=== PATIENT | female | born 1960 | race Caucasian/White ===

== ENCOUNTER 2019-06-11 03:00 | Inpatient (IN) | payer BC, OTHER ==
[2019-06-11 03:41] LABS: #Basophils 0.1 thou/uL (0.0-0.2); #Eosinphils 0.2 thou/uL (0.0-0.7); #Lymphocytes 2.1 thou/uL (1.20-3.40); #Monocytes 0.6 thou/uL (0.11-0.59); #Neutrophils 7.3 thou/uL (1.40-6.50); %Basophils 0.6 % (0.0-1.0); %Eosinophils 2.3 % (0.0-10.0); %Lymphocytes 20.7 % (21.0-51.0); %Monocytes 5.4 % (0.0-10.0); Hemoglobin 9.6 g/dL (12.0-16.0); Mean Corpuscular HGB CONC 32.1 g/dL (32.0-36.0); Mean Corpuscular Hemoglobin 29.1 pg (27.0-31.0); Mean Corpuscular Volume 90.7 fL (78.0-98.0); Mean Platelet Volume 6.5 fL (7.4-10.4); Platelet Count 470 thou/uL (130-400); RBC Distribution Width 15.1 % (11.5-14.5); Red Blood Cell (RBC) Count 3.29 mill/uL (4.20-5.40); White Blood Cell (WBC) Count 10.3 thou/uL (4.8-10.8)
[2019-06-11] MEDS ORDERED: Ondansetron PF 4 MG/2 ML Vial ONE (03:46)
[2019-06-11] MEDS ORDERED: Pantoprazole 80 MG in Sodium Chloride 0.9% 100 ML IVP SCH (04:00)
[2019-06-11] MEDS ORDERED: Acetaminophen 325 MG TAB PO PRN ×2 (04:56→07:49)
[2019-06-11] MEDS ORDERED: HYDROcodone/Acetaminophen 5/325 mg Tablet PO PRN ×2 (04:56)
[2019-06-11] MEDS ORDERED: Sodium Chloride 0.9% 1,000 ML IV SCH (04:56)
[2019-06-11] MEDS ORDERED: Ondansetron PF 4 MG/2 ML Vial IVP PRN ×2 (04:56→07:49)
[2019-06-11] MEDS ORDERED: Ondansetron ODT 4 MG TAB SL PRN ×2 (04:56→07:49)
[2019-06-11 05:26] VITALS: BMI 24.5
[2019-06-11] MEDS ORDERED: Loperamide HCl 2 MG CAP PO PRN (07:49)
[2019-06-11] MEDS ORDERED: hydrALAZINE 20 MG/ML VIAL SLOW IVP PRN (07:49)
[2019-06-11] MEDS ORDERED: Cepastat Lozenges 1 LOZ PO PRN (07:49)
[2019-06-11] MEDS ORDERED: Loratadine 10 MG TAB PO PRN (07:49)
[2019-06-11] MEDS ORDERED: Diabetic Tussin 200 MG/10 ML UDCUP PO PRN (07:49)
[2019-06-11] MEDS ORDERED: Calcium Carbonate 500 MG ChewTAB PO PRN (07:49)
[2019-06-11] MEDS ORDERED: Artificial Tears 18 DROP/0.9 ML EA EYE PRN (07:49)
[2019-06-11] MEDS ORDERED: Sodium Chloride 0.65% Nasal 44 ML BOT EA NARE PRN (07:49)
[2019-06-11] MEDS ORDERED: Senokot S 8.6-50 MG TAB PO PRN (07:49)
[2019-06-11] MEDS ORDERED: Zolpidem Tartrate 5 MG TAB PO PRN (07:49)
[2019-06-11] MEDS ORDERED: Bisacodyl 10 MG SUPP PR PRN (07:49)
--- NOTE | 2019-06-11 11:10 | HP ---
PRIMARY CARE PHYSICIAN: [facility] Call Admission. REASON FOR ADMISSION: Epigastric abdominal pain, GI bleed, and symptomatic anemia. HISTORY OF PRESENT ILLNESS: A 59-year-old female, who has previous history of peptic ulcer disease, which was diagnosed several years ago. She was having epigastric abdominal pain for last six months. She required two emergency room visit in [place] where she lives, but she has not had any specific tests done. The patient was not taking any specific medication, but she was trying [id number] occasional Tylenol or ibuprofen for pain. For last 2 to 3 days when she was visiting her daughter here, she was having constant epigastric pain and she was feeling nausea and vomiting. Yesterday, she had several episodes of vomiting and she also reports that she lost almost 20 pounds over last several months. She denies any relation of epigastric pain with food, but the patient has constant nagging pain in the epigastric region. She denies noticing any melena or hematochezia. She came to emergency room. She was evaluated at [facility], where she had CT of the abdomen and pelvis, which showed abnormality of the gastric mucosa in the region of gastric antrum and left ovarian dermoid cyst was found incidentally. The patient was given Protonix and subsequently, she was transferred to our emergency room for admission. REVIEW OF SYSTEMS: CONSTITUTIONAL: Negative for weight loss or gain, ability to conduct usual activities. SKIN: Negative for rash, itching. EYES: Negative for double vision, pain. ENT/MOUTH: Negative for nose bleeding, neck stiffness, pain, tenderness. CARDIOVASCULAR: Negative for palpitations, dyspnea on exertion, orthopnea. RESPIRATORY: Negative for shortness of breath, wheezing, cough, hemoptysis, fever or night sweats. GASTROINTESTINAL: Negative for poor appetite, abdominal pain, heartburn, nausea, vomiting, constipation, or diarrhea. GENITOURINARY: Negative for urgency, frequency, dysuria, nocturia. MUSCULOSKELETAL: Negative for pain, swelling. NEUROLOGIC/PSYCHIATRIC: Negative for anxiety, depression. ALLERGY/IMMUNOLOGIC: Negative for skin rash, bleeding tendency. Please see my HPI for pertinent positive and negative. All other systems reviewed and negative except as mentioned in HPI. PAST MEDICAL HISTORY: History of peptic ulcer disease, required treatment in the past. She had anemia, required blood transfusion in the past. PAST SURGICAL HISTORY: Bleeding ulcer repair. PAST PSYCHIATRIC HISTORY: Reviewed and negative. SOCIAL HISTORY: The patient drinks alcohol occasionally. She denies any smoking. She denies any other illicit drug abuse. FAMILY HISTORY: No family history of coronary artery disease, stroke, or cancer. ALLERGIES: PENICILLIN. CURRENT HOME MEDICATION: Reglan 10 mg p.r.n. EMERGENCY ROOM COURSE: The patient is given Protonix and Protonix drip started. Zofran was given. PHYSICAL EXAMINATION: VITAL SIGNS: On arrival, blood pressure 117/63, pulse 111, respiratory rate 13, temperature 98.9, and saturation 96% on room air. Weight 59 kg. GENERAL: The patient is currently alert, awake, and in no obvious acute distress. HEENT: Head; normocephalic and atraumatic. Eyes; pupils are round and reactive to light. Extraocular muscle intact. ENT; oropharynx within normal limits. Moist mucous membranes. No oral lesion. No pharyngeal erythema. No exudate. NECK: Supple. No JVD. No thyromegaly. No carotid bruit. No jugular venous distention. LUNGS: Clear to auscultation without any rhonchi or rales. CARDIAC: S1 and S2, regular. No murmur. No gallop. No rub. ABDOMEN: Soft. Bowel sounds present. Epigastric tenderness noted. No peritoneal sign. No guarding. No rigidity. No rebound. BACK: Examination unremarkable. No CVA tenderness. EXTREMITIES: Upper extremities, passive movement of all joints are normal. Lower extremities, no edema. Good distal pulsation. SKIN: No skin rash. HEMATOLOGIC: No lymphadenopathy. NEUROLOGIC: Nonfocal examination. SIGNIFICANT LABORATORY DATA: CBC; WBC 10.3, hemoglobin on admission 6.8 and currently 9.6, and platelets are 470. BMP; sodium 141, potassium 3.7, chloride 106, BUN 27, creatinine 0.73, glucose 105, calcium 9.4, lactic acid 1.0. LFT; AST 29, ALT 31, alkaline phosphatase 134, albumin 3.6, and lipase 13. Urinalysis suggestive of asymptomatic bacteriuria. ASSESSMENT/PLAN: 1. Symptomatic anemia, suspected from acute/chronic blood loss. This patient claims that she did not notice any blood with vomitus, but her hemoglobin is 6.8, which was dilutional, but she has chronic anemia, most likely chronic blood loss from ulcerative peptic ulcer disease. At this point, the patient is given 2 units of blood transfusion and her hemoglobin has improved. We will do iron study tomorrow to see whether the patient will benefit from iron infusion. 2. Epigastric abdominal pain. The patient has significant thickening of the gastric antrum. The patient has previous history of peptic ulcer disease. Differential diagnoses; peptic ulcer disease, underlying neoplasm needs to be excluded. Gastroenterology is consulted and they will plan for upper endoscopy. H pylori infection needs to be excluded as well. We will continue to treat with Protonix drip while in hospital. 3. Left ovarian dermoid cyst, incidental finding. The patient will need outpatient followup with [facility] doctor. 4. DVT prophylaxis. No Lovenox because of bleeding. GI prophylaxis, Protonix drip. CODE STATUS: The patient is full code and her daughter is surrogate decision maker. DISPOSITION PLAN: Based on clinical course, we are expecting the patient's stay in hospital more than 2 midnights. Plan of care discussed with the patient in detail. Job ID: [id number]
--- NOTE | 2019-06-11 11:25 | CON ---
DATE OF CONSULTATION: 06/11/2019 REASON FOR CONSULTATION: Symptomatic anemia, abdominal pain, nausea, and vomiting. HISTORY OF PRESENT ILLNESS: Ms. Teodora Burrows is a very pleasant 59-year-old female, who lives in [place]. She is visiting her daughter in [place]. She came to [place] approximately a week ago. The patient has had abdominal pain off and on over the last several months. She has gone to the ER in [place] a couple of times and was told to be dehydration and was given IV fluids. She was also taking Aleve for pain over the last several months. The pain is somewhat very vague, sometimes she feels the pain all over the abdomen and sometimes over the epigastric area. She has had no hematochezia. No history of melena. No history of vomiting any blood or coffee-grounds emesis. The patient's past history included bleeding peptic ulcer 8 years ago and was treated endoscopically. The patient is not on any acid suppression after her initial endoscopic intervention about 8 years ago. Her symptoms have been going on over the last 6 months or so. She has had some nausea off and on, abdominal pain. The patient was having abdominal pain, nausea, and vomiting yesterday. She vomited several times. She did not vomit any blood nor vomited any coffee-ground material. She has had no melena. The patient's bowel movement seems to be regular until about few weeks ago. She says she is constipated and is not going to the bathroom like she did before. She has been noticing fatigue, tiredness, and lack of energy over the last several weeks. She was seen in the [place] ER and was found to have anemia and has been transfused. This morning at 3:30, her blood count is up to 9.6, hematocrit 29.9, WBC is 10,300. She has no relevant history. ALLERGIES: PENICILLIN. SOCIAL HISTORY: The patient does not smoke, but drinks alcohol socially. MEDICAL ILLNESSES: No major medical illness. PAST MEDICAL HISTORY: Bleeding ulcer 8 years ago and was treated endoscopically. PAST SURGICAL HISTORY: No major surgeries. FAMILY HISTORY: No family history of any cancer. No family history of any heart disease, stroke, hypertension, or diabetes. HOME MEDICINES: 1. Aspirin. 2. Aleve as needed. REVIEW OF SYSTEMS: Ten-point system review; CONSTITUTIONAL: No history of any weight loss, no fever, but her energy level has been somewhat low over the last several weeks. HEAD: No chronic headache. No seizures. No TIA. ENT: Unremarkable. NECK: No neck pain or stiffness. BREASTS: No breast lumps or any masses. LUNGS: No dyspnea, chronic coughing, or hemoptysis. CARDIOVASCULAR: No chest pain. No palpitation. No dyspnea, orthopnea, or PND. GI: As in history of present illness, abdominal pain over the last several months with nausea and not feeling well. She also has some constipation. No history of hematochezia or melena. : No dysuria, hematuria, or frequent urination. MUSCULOSKELETAL: Nonrelevant. NEUROENDOCRINE: Nonrelevant. NEUROPSYCHIATRY: Nonrelevant. PHYSICAL EXAMINATION: GENERAL: She is very pleasant female, appears comfortable. VITAL SIGNS: Afebrile. Pulse is 94, blood pressure 127/66. HEENT: Conjunctivae are clear. NECK: Supple. No adenitis or thyromegaly noted. CARDIOVASCULAR: First and second heart sounds heard. LUNGS: Clear to auscultation. ABDOMEN: Soft. Abdomen is nondistended. Abdomen is tender over the epigastric area and periumbilical area. There is no rebound or guarding. No organomegaly. No masses. Bowel sounds normal. EXTREMITIES: No edema. CENTRAL NERVOUS SYSTEM: Grossly within normal limits. LABORATORY DATA: From this morning, CBC; WBC 10,300, hemoglobin 9.6, hematocrit 29.9, MCV 90.7, platelet count is 470,000, polymorphs 71, lymphocytes 20. When seen in [facility] yesterday evening, her hemoglobin was 7.2, dropping to 6.8. The chemistry panel shows mildly elevated BUN of 27. Creatinine 0.73. Otherwise liver function tests and lipase, all normal. She had a CT scan of abdomen yesterday evening. The CAT scan gastric mucosa, gastric antrum. She also has 2.8 cm left ovarian dermoid. CLINICAL IMPRESSION: A 59-year-old female with history of bleeding peptic ulcer 8 years ago. She was treated endoscopically at that time. The patient was taking aspirin and Aleve over the last several months off and on. She presents with abdominal pain and anemia. The patient has no history of hematemesis or any melena. Based on the history, I believe she has most likely recurrent ulcer disease. She also has history of constipation over the last several weeks. RECOMMENDATION: EGD later on this morning. Further recommendations pending the EGD findings. Job ID: [id number]
[2019-06-11 11:55] LABS: Bilirubin Negative (Negative); Blood, Urine Negative (Negative); Clarity Clear (Clear); Glucose, Urine (Dipstick) Normal (Negative); Leukocyte 25 Leu/uL (Negative); Nitrite Negative (Negative); Protein, Urine (Dipstick) Negative (Neg-Trace); RBC/HPF 0-3 HPF (0-3); Squamous Epithelial 0-3 HPF (0-3)
[2019-06-11 11:56] LABS: Bacteria/HPF 1+ HPF (None Seen)
[2019-06-11] MEDS ORDERED: EPINEPHrine 1 MG/10 ML Abboject SYRINGE ONE (13:56)
[2019-06-11] MEDS ORDERED: PROPOFOL 200 MG/20 ML VIAL ONE (13:56)
[2019-06-11] MEDS ORDERED: Acetaminophen 650 MG in Premix Bag 1 BAG IVPB SCH (15:15)
[2019-06-11] MEDS: Pantoprazole 80 MG in Sodium Chloride 0.9% 100 ML IVPB SCH (18:00)
[2019-06-11] MEDS: Sodium Chloride 0.9% 1,000 ML IV SCH ×2 (18:31→23:25)
[2019-06-12] MEDS ORDERED: Acetaminophen 650 MG in Premix Bag 1 BAG IVPB SCH (02:45)
--- NOTE | 2019-06-12 03:47 | OP ---
DATE OF PROCEDURE: 06/11/2019 PROCEDURE: Esophagogastroduodenoscopy with biopsy and control of hemorrhage. PREOPERATIVE DIAGNOSIS: Gastrointestinal bleed and anemia of acute blood loss. DESCRIPTION OF PROCEDURE: Informed consent was obtained from the patient. She was sedated with total intravenous anesthesia. A bite block was placed and the endoscope was advanced easily to the second portion of the duodenum and retroflexion was performed in the stomach. 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 There was a 2 cm hiatal hernia present. The stomach was normal in retroflex views. There was a very large several cm cratered ulcer in the posterior wall of the antrum extending through the pylorus to the first portion of the duodenum. There was a 2nd smaller 1 cm ulcer on the lateral wall of the bulb of the duodenum with a white base. The second portion of the duodenum was normal. In the center of the large ulcer, there was a protruding vessel which was soft and it does appear to be significant risk for repeating bleeding. However, there was no blood clot around that. It actually had some granulation over the top of it and there was no new or old blood in the stomach. I injected epinephrine a total of 4 mL of 1:10,000 in four quadrants around the ulcer and the vessel. A 10-[place] Gold probe was placed up against the ulcer. However, it became apparent that the vessel was significantly larger in diameter than the 10-[place]ub[place] Gold probe even in the long position. As it does not appear this vessel is blood at least for over 12 hours, I did not apply cautery to the vessel as I believe this would not achieve coapt of coagulation, but just more likely produce a hole in the vessel, though would be difficult to control. A clip would not hold as there is just a fibrotic ulcer base around it. Ultimately, we will treat this medically, and if she bleeds, then the surgery will be required. The air was suctioned from the stomach and the procedure was completed. IMPRESSION: 1. Very large cratered ulcer extending throughout the posterior wall of the antrum and extending through the pylorus to the first portion of the duodenum. There was a large protruding soft vessel in the center of the ulcer. There was no recent bleeding from this vessel. The vessel was injected around it with 4 mL of epinephrine. While the Gold probe was touched to the vessel, the electricity was not applied as it became clear that the vessel was significantly larger diameter than the Gold probe. A clip cannot be placed; however, the clip would not hold adequate tissue around the vessel due to the fibrotic base of the ulcer. 2. Smaller 1 cm ulcer on the lateral wall of the duodenal bulb showed no signs of stigmata of recent bleeding. 3. Open ring in the distal esophagus just above a 2 cm hiatal hernia. This was left alone. RECOMMENDATION: 1. Continue proton pump inhibitor drip likely for the next 72 hours. 2. Await histopathology. The ulcer edges and antrum were biopsied. 3. Consider repeat EGD in 2 or 3 days. 4. If she bleeds actively, then she will need to go directly to surgery. Job ID: [id number]
[2019-06-12 04:34] LABS: #Basophils 0.1 thou/uL (0.0-0.2); #Eosinphils 0.2 thou/uL (0.0-0.7); #Lymphocytes 1.5 thou/uL (1.20-3.40); #Monocytes 0.5 thou/uL (0.11-0.59); #Neutrophils 7.4 thou/uL (1.40-6.50); %Basophils 0.6 % (0.0-1.0); %Eosinophils 1.8 % (0.0-10.0); %Lymphocytes 15.9 % (21.0-51.0); %Monocytes 4.8 % (0.0-10.0); %Neutrophils 76.9 % (42.0-75.0); Hemoglobin 8.6 g/dL (12.0-16.0); Mean Corpuscular HGB CONC 31.6 g/dL (32.0-36.0); Mean Corpuscular Hemoglobin 28.6 pg (27.0-31.0); Mean Corpuscular Volume 90.7 fL (78.0-98.0); Mean Platelet Volume 6.1 fL (7.4-10.4); Platelet Count 420 thou/uL (130-400); RBC Distribution Width 15.1 % (11.5-14.5); Red Blood Cell (RBC) Count 3.02 mill/uL (4.20-5.40); White Blood Cell (WBC) Count 9.6 thou/uL (4.8-10.8)
[2019-06-12 05:15] LABS: Anion Gap 16 mmol/L (10-20); BUN (Urea Nitrogen) 9 mg/dL (9.8-20.1); Calc. Creatinine Clearance 93 mL/min (70-130); Calcium 8.6 mg/dL (7.8-10.44); Carbon Dioxide 18 mmol/L (22-29); Chloride 109 mmol/L (98-107); Estimated GFR-MDRD Greater than 90; Glucose 63 mg/dL (70-105); Potassium 3.9 mmol/L (3.5-5.1); Sodium 139 mmol/L (136-145)
--- NOTE | 2019-06-12 11:59 | PDOC.PN ---
- Subjective Encounter Start Date: 06/12/19 Encounter Start Time: 09:45 -: old records requested/rev Patient seen and examined. No new complaints. No overnight events, she has epigastric abdominal pain - Objective Resuscitation Status - Order Detail: 06/11/19 07:49 Resuscitation Status Routine Resuscitation Status: FULL: Full Resuscitation MAR Reviewed: Yes Vital Signs & Weight: Vital Signs (12 hours) Temp Pulse Resp BP Pulse Ox 06/12/19 10:29 98.5 F 06/12/19 07:55 96 06/12/19 07:10 98.7 F 06/12/19 04:11 93 L 06/12/19 03:33 99.6 F 06/12/19 00:04 91 20 112/66 93 L Weight Weight 132 lb 3.2 oz Most Recent Monitor Data Heart Rate from ECG 101 NIBP 121/66 NIBP BP-Mean 84 Respiration from ECG 24 SpO2 95 I&O: 06/11/19 06/12/19 06/13/19 06:59 06:59 06:59 Intake Total 1150 Output Total 775 Balance 375 Result Diagrams: 06/12/19 04:17 06/12/19 04:17 Additional Labs: Accuchecks 06/12/19 06:34 POC Glucose 62 L EKG Reviewed by me: Yes Phys Exam - Physical Examination Constitutional: NAD HEENT: PERRLA, moist MMs, sclera anicteric Neck: no JVD, supple Respiratory: no wheezing, no rales, no rhonchi Cardiovascular: RRR, no significant murmur, no rub Gastrointestinal: soft, no distention, positive bowel sounds epigastric tenderness Musculoskeletal: no edema, pulses present Neurological: non-focal, normal sensation, moves all 4 limbs Lymphatic: no nodes Psychiatric: normal affect, A&O x 3 Skin: no rash, normal turgor Dx/Plan (1) Anemia due to acute blood loss Code(s): D62 - ACUTE POSTHEMORRHAGIC ANEMIA Status: Acute (2) Ulcer of antrum of stomach Code(s): K25.9 - GASTRIC ULCER, UNSP ACUTE OR CHRONIC, W/O HEMOR OR PERF Status: Acute (3) Upper GI bleed Code(s): K92.2 - GASTROINTESTINAL HEMORRHAGE, UNSPECIFIED Status: Acute (4) Dermoid cyst of left ovary Code(s): D27.1 - BENIGN NEOPLASM OF LEFT OVARY Status: Chronic - Plan cont current plan of care, plan discussed w/ family * continue protonix drip * monitor in imcu * medication reviewed as below * symptomatic treatment * follow pathology report. Review of Systems - Review of Systems ENT: negative: Ear Pain, Ear Discharge, Nose Pain, Nose Discharge, Nose Congestion, Mouth Pain, Mouth Swelling, Throat Pain, Throat Swelling, Other Respiratory: negative: Cough, Dry, Shortness of Breath, Hemoptysis, SOB with Excertion, Pleuritic Pain, Sputum, Wheezing Cardiovascular: negative: chest pain, palpitations, orthopnea, paroxysmal nocturnal dyspnea, edema, light headedness, other Gastrointestinal: Abdominal Pain. negative: Nausea, Vomiting, Diarrhea, Constipation, Melena, Hematochezia, Other Genitourinary: negative: Dysuria, Frequency, Incontinence, Hematuria, Retention , Other Musculoskeletal: negative: Neck Pain, Shoulder Pain, Arm Pain, Back Pain, Hand Pain, Leg Pain, Foot Pain, Other Skin: negative: Rash, Lesions, Raul, Bruising, Other - Medications/Allergies Allergies/Adverse Reactions: Allergies Allergy/AdvReac Type Severity Reaction Status Date / Time Penicillins Allergy Intermediate Hives Verified 06/11/19 05:34 Medications: Current Medications Acetaminophen (Tylenol) 650 mg PO Q4H PRN PRN Reason: Headache/Fever/Mild Pain (1-3) Hydrocodone Bitart/Acetaminophen ([place] 5/325) 1 tab PO Q4H PRN PRN Reason: Moderate Pain (4-6) Artificial Tears (Tears Naturale) 2 drop EA EYE PRN PRN PRN Reason: Dry Eyes Bisacodyl (Dulcolax) 10 mg [place] DAILYPRN PRN PRN Reason: Constipation Calcium Carbonate (Tums) 1,000 mg PO Q4H PRN PRN Reason: Heartburn or Indigestion Guaifenesin (Robitussin Sf) 200 mg PO Q4H PRN PRN Reason: Cough Hydralazine HCl (Apresoline) 10 mg SLOW IVP Q4H PRN PRN Reason: SBP > 180 and HR < 70 Sodium Chloride (Normal Saline 0.9%) 1,000 mls @ 100 mls/hr IV .Q10H MOI Last Admin: 06/11/19 23:25 Dose: 1,000 mls Pantoprazole Sodium 80 mg/ (Sodium Chloride) 100 mls @ 10 mls/hr IVPB INF MOI Last Admin: 06/11/19 18:00 Dose: 100 mls Loperamide HCl (Imodium) 2 mg PO PRN PRN PRN Reason: Diarrhea/Loose Stools Loratadine (Claritin) 10 mg PO DAILYPRN PRN PRN Reason: Sinus Symptoms Ondansetron HCl (Zofran Odt) 4 mg SL Q6H PRN PRN Reason: Nausea/Vomiting Ondansetron HCl (Zofran) 4 mg IVP Q6H PRN PRN Reason: Nausea/Vomiting Senna/Docusate Sodium (Senokot S) 2 tab PO BID PRN PRN Reason: Constipation Sodium Chloride ([place] Nasal [place] 0.65%) 0 ml EA NARE QIDPRN PRN PRN Reason: Nasal Congestion Throat Lozenges (Cepastat Lozenges) 1 viridiana PO Q2H PRN PRN Reason: Sore Throat Zolpidem Tartrate (Ambien) 5 mg PO HSPRN PRN PRN Reason: Insomnia
--- NOTE | 2019-06-12 12:28 | PRG ---
DATE OF SERVICE: 06/12/2019 SUBJECTIVE: Ms. Burrows has stable epigastric chronic abdominal pain. She has had no nausea or vomiting since the procedure. No bowel movements since endoscopy last night. IMPRESSION: 1. Large antral ulcer with a protruding visible vessel in the base, that appears to be high risk for bleeding, but it is not actively bleeding now. The vessel itself is too large for endoscopic management, and if she does bleed significantly overtly, then she will need to go directly to surgery. 2. Anemia secondary to chronic and acute blood loss. RECOMMENDATIONS: 1. Continue proton pump inhibitor drip for the next 2 days. 2. We should be able to advance to clear liquid diet today. 3. She can transfer back to the floor today. 4. We will continue to monitor for acute bleed. Job ID: [id number]
[2019-06-12] MEDS: Pantoprazole 80 MG in Sodium Chloride 0.9% 100 ML IVPB SCH (17:49)
[2019-06-12] MEDS: Sodium Chloride 0.9% 1,000 ML IV SCH ×2 (17:49→23:30)
[2019-06-12] MEDS: HYDROcodone/Acetaminophen 5/325 mg Tablet PO PRN (23:39)
[2019-06-13] MEDS: Pantoprazole 80 MG in Sodium Chloride 0.9% 100 ML IVPB SCH ×3 (03:40→22:51)
[2019-06-13] MEDS: HYDROcodone/Acetaminophen 5/325 mg Tablet PO PRN ×3 (07:45→18:33)
[2019-06-13] MEDS: Sodium Chloride 0.9% 1,000 ML IV SCH ×2 (09:18→19:02)
--- NOTE | 2019-06-13 11:17 | PDOC.PN ---
- Subjective Encounter Start Date: 06/13/19 Encounter Start Time: 08:45 Patient seen and examined. No new complaints. No overnight events - Objective Resuscitation Status - Order Detail: 06/11/19 07:49 Resuscitation Status Routine Resuscitation Status: FULL: Full Resuscitation MAR Reviewed: Yes Vital Signs & Weight: Vital Signs (12 hours) Temp Pulse Resp BP Pulse Ox 06/13/19 07:15 98.1 F 86 17 107/50 L 96 06/13/19 00:00 98.3 F 84 18 108/61 98 Weight Weight 132 lb 3.2 oz Most Recent Monitor Data Heart Rate from ECG 98 NIBP 116/61 NIBP BP-Mean 79 Respiration from ECG 24 SpO2 94 I&O: 06/12/19 06/13/19 06/14/19 06:59 06:59 06:59 Intake Total 1150 1200 Output Total 775 Balance 375 1200 Result Diagrams: 06/12/19 04:17 06/12/19 04:17 Phys Exam - Physical Examination Constitutional: NAD HEENT: PERRLA, moist MMs, sclera anicteric Neck: no JVD, supple Respiratory: no wheezing, no rales, no rhonchi Cardiovascular: RRR, no significant murmur, no rub Gastrointestinal: soft, no distention, positive bowel sounds mild epigastric discomfort Musculoskeletal: no edema, pulses present Neurological: non-focal, normal sensation, moves all 4 limbs Lymphatic: no nodes Psychiatric: normal affect, A&O x 3 Skin: no rash, normal turgor Dx/Plan (1) Anemia due to acute blood loss Code(s): D62 - ACUTE POSTHEMORRHAGIC ANEMIA Status: Acute (2) Ulcer of antrum of stomach Code(s): K25.9 - GASTRIC ULCER, UNSP ACUTE OR CHRONIC, W/O HEMOR OR PERF Status: Acute (3) Upper GI bleed Code(s): K92.2 - GASTROINTESTINAL HEMORRHAGE, UNSPECIFIED Status: Acute (4) Dermoid cyst of left ovary Code(s): D27.1 - BENIGN NEOPLASM OF LEFT OVARY Status: Chronic - Plan cont current plan of care, plan discussed w/ family * continue protonix drip * plan for repeat endoscopy may be tomorrow or saturday * medication reviewed as below * symptomatic treatment. * pathology report is pending Review of Systems - Review of Systems Eyes: negative: Pain, Vision Change, Conjunctivae Inflammation, Eyelid Inflammation, Redness, Other ENT: negative: Ear Pain, Ear Discharge, Nose Pain, Nose Discharge, Nose Congestion, Mouth Pain, Mouth Swelling, Throat Pain, Throat Swelling, Other Respiratory: negative: Cough, Dry, Shortness of Breath, Hemoptysis, SOB with Excertion, Pleuritic Pain, Sputum, Wheezing Cardiovascular: negative: chest pain, palpitations, orthopnea, paroxysmal nocturnal dyspnea, edema, light headedness, other Gastrointestinal: Abdominal Pain. negative: Nausea, Vomiting, Diarrhea, Constipation, Melena, Hematochezia, Other Genitourinary: negative: Dysuria, Frequency, Incontinence, Hematuria, Retention , Other Musculoskeletal: negative: Neck Pain, Shoulder Pain, Arm Pain, Back Pain, Hand Pain, Leg Pain, Foot Pain, Other Skin: negative: Rash, Lesions, Raul, Bruising, Other - Medications/Allergies Allergies/Adverse Reactions: Allergies Allergy/AdvReac Type Severity Reaction Status Date / Time Penicillins Allergy Intermediate Hives Verified 06/11/19 05:34 Medications: Current Medications Acetaminophen (Tylenol) 650 mg PO Q4H PRN PRN Reason: Headache/Fever/Mild Pain (1-3) Hydrocodone Bitart/Acetaminophen ([place] 5/325) 1 tab PO Q4H PRN PRN Reason: Moderate Pain (4-6) Last Admin: 06/13/19 07:45 Dose: 1 tab Artificial Tears (Tears Naturale) 2 drop EA EYE PRN PRN PRN Reason: Dry Eyes Bisacodyl (Dulcolax) 10 mg [place] DAILYPRN PRN PRN Reason: Constipation Calcium Carbonate (Tums) 1,000 mg PO Q4H PRN PRN Reason: Heartburn or Indigestion Guaifenesin (Robitussin Sf) 200 mg PO Q4H PRN PRN Reason: Cough Hydralazine HCl (Apresoline) 10 mg SLOW IVP Q4H PRN PRN Reason: SBP > 180 and HR < 70 Sodium Chloride (Normal Saline 0.9%) 1,000 mls @ 100 mls/hr IV .Q10H MOI Last Admin: 06/13/19 09:18 Dose: 1,000 mls Pantoprazole Sodium 80 mg/ (Sodium Chloride) 100 mls @ 10 mls/hr IVPB INF MOI Last Admin: 06/13/19 03:40 Dose: 100 mls Loperamide HCl (Imodium) 2 mg PO PRN PRN PRN Reason: Diarrhea/Loose Stools Loratadine (Claritin) 10 mg PO DAILYPRN PRN PRN Reason: Sinus Symptoms Ondansetron HCl (Zofran Odt) 4 mg SL Q6H PRN PRN Reason: Nausea/Vomiting Ondansetron HCl (Zofran) 4 mg IVP Q6H PRN PRN Reason: Nausea/Vomiting Senna/Docusate Sodium (Senokot S) 2 tab PO BID PRN PRN Reason: Constipation Sodium Chloride ([place] Nasal [place] 0.65%) 0 ml EA NARE QIDPRN PRN PRN Reason: Nasal Congestion Throat Lozenges (Cepastat Lozenges) 1 viridiana PO Q2H PRN PRN Reason: Sore Throat Zolpidem Tartrate (Ambien) 5 mg PO HSPRN PRN PRN Reason: Insomnia
--- NOTE | 2019-06-13 17:15 | PRG ---
DATE OF SERVICE: 06/13/2019 SUBJECTIVE: Ms. Burrows has continued to have epigastric abdominal pain, but is tolerating clear liquids well. She has had no nausea or vomiting. She has had no stool output since endoscopy. OBJECTIVE: VITAL SIGNS: Temperature 98.6, pulse 74, blood pressure 107/62. GENERAL: She is in no acute distress. Alert and oriented x3. LUNGS: Clear to auscultation bilaterally. HEART: Regular rate and rhythm without murmur. ABDOMEN: Soft. She has epigastric tenderness without guarding. Bowel sounds are present. EXTREMITIES: No lower extremity edema. LABORATORY DATA: White blood cell count 9.6, hemoglobin 8.6, platelets 420. Creatinine 0.63. IMPRESSION: 1. Large antral ulcer extending through the pyloric channel up to the first portion of the duodenum. She had a large blood vessel in the base of this, which had a diameter greater than the diameter of the Gold Probe, therefore this was not cauterized at that point as it was not actively bleeding. We are continuing with medical management with IV PPI and there has been no further bleeding. 2. Anemia secondary to chronic and acute blood loss. RECOMMENDATIONS: 1. Continue the proton pump inhibitor drip. 2. We will advance to a full liquid diet today. 3. Continue the proton pump inhibitor drip through tomorrow and we will plan for upper endoscopy on Saturday to assess the status of the ulcer and vessel in the base of it. Job ID: [id number]
[2019-06-14] MEDS: HYDROcodone/Acetaminophen 5/325 mg Tablet PO PRN ×5 (02:02→21:37)
[2019-06-14] MEDS: Sodium Chloride 0.9% 1,000 ML IV SCH (05:01)
[2019-06-14 06:46] LABS: #Basophils 0.1 thou/uL (0.0-0.2); #Eosinphils 0.3 thou/uL (0.0-0.7); #Lymphocytes 1.7 thou/uL (1.20-3.40); #Monocytes 0.4 thou/uL (0.11-0.59); #Neutrophils 2.9 thou/uL (1.40-6.50); %Basophils 1.7 % (0.0-1.0); %Eosinophils 5.3 % (0.0-10.0); %Lymphocytes 32.5 % (21.0-51.0); %Monocytes 6.7 % (0.0-10.0); %Neutrophils 53.9 % (42.0-75.0); Hemoglobin 8.9 g/dL (12.0-16.0); Mean Corpuscular HGB CONC 31.8 g/dL (32.0-36.0); Mean Corpuscular Volume 91.2 fL (78.0-98.0); Mean Platelet Volume 6.3 fL (7.4-10.4); Platelet Count 430 thou/uL (130-400); RBC Distribution Width 15.2 % (11.5-14.5); Red Blood Cell (RBC) Count 3.08 mill/uL (4.20-5.40); White Blood Cell (WBC) Count 5.3 thou/uL (4.8-10.8)
[2019-06-14] MEDS ORDERED: Iron Sucrose Complex 200 MG in Sodium Chloride 0.9% 250 ML 250 ML IVPB SCH (07:45)
[2019-06-14] MEDS ORDERED: Iron, Sodium Ferric Gluconate 250 MG in Sodium Chloride 0.9% 100 ML IVPB SCH (08:00)
[2019-06-14] MEDS: Pantoprazole 80 MG in Sodium Chloride 0.9% 100 ML IVPB SCH ×2 (08:55→17:14)
--- NOTE | 2019-06-14 12:00 | PDOC.PN ---
- Subjective Encounter Start Date: 06/14/19 Encounter Start Time: 09:00 Patient seen and examined. No new complaints. No overnight events - Objective Resuscitation Status - Order Detail: 06/11/19 07:49 Resuscitation Status Routine Resuscitation Status: FULL: Full Resuscitation MAR Reviewed: Yes Vital Signs & Weight: Vital Signs (12 hours) Temp Pulse Resp BP Pulse Ox 06/14/19 08:00 98 06/14/19 07:39 98.2 F 79 16 117/74 98 Weight Weight 132 lb 3.2 oz Most Recent Monitor Data Heart Rate from ECG 98 NIBP 116/61 NIBP BP-Mean 79 Respiration from ECG 24 SpO2 94 I&O: 06/13/19 06/14/19 06/15/19 06:59 06:59 06:59 Intake Total 1200 Balance 1200 Result Diagrams: 06/14/19 06:18 06/12/19 04:17 Phys Exam - Physical Examination Constitutional: NAD HEENT: PERRLA, moist MMs, sclera anicteric Neck: no JVD, supple Respiratory: no wheezing, no rales, no rhonchi Cardiovascular: RRR, no significant murmur, no rub Gastrointestinal: soft, no distention, positive bowel sounds mild epigastric discomfort Musculoskeletal: no edema, pulses present Neurological: non-focal, normal sensation, moves all 4 limbs Lymphatic: no nodes Psychiatric: normal affect, A&O x 3 Skin: no rash, normal turgor Dx/Plan (1) Anemia due to acute blood loss Code(s): D62 - ACUTE POSTHEMORRHAGIC ANEMIA Status: Acute (2) Ulcer of antrum of stomach Code(s): K25.9 - GASTRIC ULCER, UNSP ACUTE OR CHRONIC, W/O HEMOR OR PERF Status: Acute (3) Upper GI bleed Code(s): K92.2 - GASTROINTESTINAL HEMORRHAGE, UNSPECIFIED Status: Acute (4) Dermoid cyst of left ovary Code(s): D27.1 - BENIGN NEOPLASM OF LEFT OVARY Status: Chronic - Plan cont current plan of care, plan discussed w/ family * follow pathology report * will give venofer IVPB today and again tomorrow * tomorrow repeat upper endoscopy * medication reviewed as below * symptomatic treatment. Review of Systems - Review of Systems ENT: negative: Ear Pain, Ear Discharge, Nose Pain, Nose Discharge, Nose Congestion, Mouth Pain, Mouth Swelling, Throat Pain, Throat Swelling, Other Respiratory: negative: Cough, Dry, Shortness of Breath, Hemoptysis, SOB with Excertion, Pleuritic Pain, Sputum, Wheezing Cardiovascular: negative: chest pain, palpitations, orthopnea, paroxysmal nocturnal dyspnea, edema, light headedness, other Gastrointestinal: negative: Nausea, Vomiting, Abdominal Pain, Diarrhea, Constipation, Melena, Hematochezia, Other Genitourinary: negative: Dysuria, Frequency, Incontinence, Hematuria, Retention , Other Musculoskeletal: negative: Neck Pain, Shoulder Pain, Arm Pain, Back Pain, Hand Pain, Leg Pain, Foot Pain, Other Skin: negative: Rash, Lesions, Raul, Bruising, Other - Medications/Allergies Allergies/Adverse Reactions: Allergies Allergy/AdvReac Type Severity Reaction Status Date / Time Penicillins Allergy Intermediate Hives Verified 06/11/19 05:34 Medications: Current Medications Acetaminophen (Tylenol) 650 mg PO Q4H PRN PRN Reason: Headache/Fever/Mild Pain (1-3) Hydrocodone Bitart/Acetaminophen ([place] 5/325) 1 tab PO Q4H PRN PRN Reason: Moderate Pain (4-6) Last Admin: 06/14/19 07:57 Dose: 1 tab Artificial Tears (Tears Naturale) 2 drop EA EYE PRN PRN PRN Reason: Dry Eyes Bisacodyl (Dulcolax) 10 mg [place] DAILYPRN PRN PRN Reason: Constipation Calcium Carbonate (Tums) 1,000 mg PO Q4H PRN PRN Reason: Heartburn or Indigestion Guaifenesin (Robitussin Sf) 200 mg PO Q4H PRN PRN Reason: Cough Hydralazine HCl (Apresoline) 10 mg SLOW IVP Q4H PRN PRN Reason: SBP > 180 and HR < 70 Pantoprazole Sodium 80 mg/ (Sodium Chloride) 100 mls @ 10 mls/hr IVPB INF MOI Last Admin: 06/14/19 08:55 Dose: 100 mls Ferric Sodium Gluconate Complex 250 mg/ Sodium Chloride 120 mls @ 60 mls/hr IVPB NOW MOI Stop: 06/14/19 13:00 Last Admin: 06/14/19 09:50 Dose: 120 mls Loperamide HCl (Imodium) 2 mg PO PRN PRN PRN Reason: Diarrhea/Loose Stools Loratadine (Claritin) 10 mg PO DAILYPRN PRN PRN Reason: Sinus Symptoms Ondansetron HCl (Zofran Odt) 4 mg SL Q6H PRN PRN Reason: Nausea/Vomiting Ondansetron HCl (Zofran) 4 mg IVP Q6H PRN PRN Reason: Nausea/Vomiting Senna/Docusate Sodium (Senokot S) 2 tab PO BID PRN PRN Reason: Constipation Sodium Chloride ([place] Nasal [place] 0.65%) 0 ml EA NARE QIDPRN PRN PRN Reason: Nasal Congestion Throat Lozenges (Cepastat Lozenges) 1 viridiana PO Q2H PRN PRN Reason: Sore Throat Zolpidem Tartrate (Ambien) 5 mg PO HSPRN PRN PRN Reason: Insomnia
--- NOTE | 2019-06-14 13:10 | PRG ---
DATE OF SERVICE: 06/14/2019 SUBJECTIVE: Ms. Burrows continues to have epigastric pain following oral intake. She has had no nausea or vomiting. No overt bleeding or black stools. OBJECTIVE: VITAL SIGNS: Temperature 98.2, pulse 79, blood pressure 117/74. GENERAL: She is in no acute distress. Alert and oriented x3. LUNGS: Clear to auscultation bilaterally. HEART: Regular rate and rhythm without murmur. ABDOMEN: Soft, tender in the epigastric region without guarding. Bowel sounds are present. EXTREMITIES: No lower extremity edema. LABORATORY DATA: White blood cell count 5.3, hemoglobin 8.9, platelets 430. IMPRESSION: Very large ulcer in the gastric antrum extending through the pylorus to the first part of the duodenum. This had a vessel in the base of the ulcer that could not be definitively cauterized and therefore we have been keeping her on proton-pump inhibitor drip and liquid diet. She continues to have abdominal pain. She had a CT scan in the ER in [place] that did not show complicated ulcer. Her white blood cell count is normal and she is afebrile. Will plan EGD tomorrow to verify that there is no high risk persistent visible vessel, in which case we should be able to take her off the PPI drip and advance her diet and discharge home. RECOMMENDATIONS: 1. EGD tomorrow morning. Job ID: [id number] [facility]ENTERJamie
[2019-06-15] MEDS: HYDROcodone/Acetaminophen 5/325 mg Tablet PO PRN ×3 (06:07→21:04)
[2019-06-15] MEDS: Pantoprazole 80 MG in Sodium Chloride 0.9% 100 ML IVPB SCH (06:07)
[2019-06-15] MEDS ORDERED: Ondansetron HCl/PF 4 MG/2 ML Vial IVP PRN (07:44)
[2019-06-15] MEDS ORDERED: Promethazine HCl 25 MG/ML VIAL IM PRN (07:44)
[2019-06-15] MEDS ORDERED: Promethazine HCl 25 MG/ML VIAL SLOW IVP PRN (07:44)
[2019-06-15] MEDS: Pantoprazole 40 MG VIAL IVP SCH ×2 (09:05→21:05)
--- NOTE | 2019-06-15 09:35 | OP ---
DATE OF PROCEDURE: 06/15/2019 PROCEDURE PERFORMED: Esophagogastroduodenoscopy. PREOPERATIVE DIAGNOSIS: Large ulcer in the gastric antrum to duodenum. Reassessed bleeding risk from visible vessel noted on previous exam a few days ago. DESCRIPTION OF PROCEDURE: Informed consent was obtained from the patient. She was sedated with total intravenous anesthesia. The bite block was placed and the endoscope was advanced easily to the second portion of the duodenum and retroflexion was performed in the stomach. The esophagus had a mild ring in the distal esophagus, which was left alone. The stomach had again this large several centimeters ulcer in the antrum that extends through to the first portion of the duodenum. Had a friable fibrotic base, but no apparent visible vessel or high risk stigmata for bleeding. The retroflexed views in the stomach were unremarkable. The duodenum was otherwise unremarkable distal to the ulcer. IMPRESSION: 1. Mild ring in the distal esophagus, left alone. 2. Large several centimeters ulcer in the antrum to the first portion of the duodenum. Has a friable fibrotic base, but no visible vessel or obvious stigmata of high risk for bleed. RECOMMENDATION: 1. Change to proton pump inhibitor twice daily. 2. Full liquid diet. 3. Continue acetaminophen for pain. 4. Await histopathology from the previous endoscopy. 5. Add sucralfate. Job ID: [id number]
[2019-06-15] MEDS: Sucralfate 1 GM/10 ML UDCUP PO SCH ×3 (10:51→21:05)
[2019-06-15] MEDS ORDERED: Iron, Sodium Ferric Gluconate 250 MG in Sodium Chloride 0.9% 100 ML IVPB SCH (12:30)
--- NOTE | 2019-06-15 18:34 | PDOC.PN ---
- Subjective Encounter Start Date: 06/15/19 Encounter Start Time: 12:20 Subjective: no abd pain, just finished her second egd -: no nausea -: daughter at bedside - Objective Resuscitation Status - Order Detail: 06/11/19 07:49 Resuscitation Status Routine Resuscitation Status: FULL: Full Resuscitation MAR Reviewed: Yes Vital Signs & Weight: Vital Signs (12 hours) Temp Pulse Resp BP Pulse Ox 06/15/19 16:19 98.5 F 82 18 117/70 94 L 06/15/19 11:45 98.4 F 84 16 114/74 97 06/15/19 09:00 96 06/15/19 08:45 98.1 F 72 18 130/78 96 Weight Weight 132 lb 3.2 oz Most Recent Monitor Data Heart Rate from ECG 98 NIBP 116/61 NIBP BP-Mean 79 Respiration from ECG 24 SpO2 94 I&O: 06/14/19 06/15/19 06/16/19 06:59 06:59 06:59 Intake Total 240 Balance 240 Result Diagrams: 06/14/19 06:18 06/12/19 04:17 Phys Exam - Physical Examination HEENT: PERRLA, sclera anicteric Neck: no JVD, supple Respiratory: no wheezing, no rales Cardiovascular: RRR, no significant murmur Gastrointestinal: soft, non-tender, no distention, positive bowel sounds Musculoskeletal: no edema, pulses present Neurological: non-focal, moves all 4 limbs Psychiatric: normal affect, A&O x 3 Dx/Plan (1) Anemia due to acute blood loss Code(s): D62 - ACUTE POSTHEMORRHAGIC ANEMIA Status: Acute (2) Ulcer of antrum of stomach Code(s): K25.9 - GASTRIC ULCER, UNSP ACUTE OR CHRONIC, W/O HEMOR OR PERF Status: Acute Qualifiers: Gastric ulcer chronicity: acute Qualified Code(s): K25.3 - Acute gastric ulcer without hemorrhage or perforation (3) Upper GI bleed Code(s): K92.2 - GASTROINTESTINAL HEMORRHAGE, UNSPECIFIED Status: Resolved (4) Dermoid cyst of left ovary Code(s): D27.1 - BENIGN NEOPLASM OF LEFT OVARY Status: Chronic - Plan h/h and hemostable -: iv iron x 1 dose -: oral iron from am -: on liq diet, encourage po intake -: oral protonix * . Review of Systems - Medications/Allergies Allergies/Adverse Reactions: Allergies Allergy/AdvReac Type Severity Reaction Status Date / Time Penicillins Allergy Intermediate Hives Verified 06/11/19 05:34 Medications: Current Medications Acetaminophen (Tylenol) 650 mg PO Q4H PRN PRN Reason: Headache/Fever/Mild Pain (1-3) Hydrocodone Bitart/Acetaminophen ([place] 5/325) 1 tab PO Q4H PRN PRN Reason: Moderate Pain (4-6) Last Admin: 06/15/19 14:30 Dose: 1 tab Artificial Tears (Tears Naturale) 2 drop EA EYE PRN PRN PRN Reason: Dry Eyes Bisacodyl (Dulcolax) 10 mg [place] DAILYPRN PRN PRN Reason: Constipation Calcium Carbonate (Tums) 1,000 mg PO Q4H PRN PRN Reason: Heartburn or Indigestion Guaifenesin (Robitussin Sf) 200 mg PO Q4H PRN PRN Reason: Cough Hydralazine HCl (Apresoline) 10 mg SLOW IVP Q4H PRN PRN Reason: SBP > 180 and HR < 70 Loperamide HCl (Imodium) 2 mg PO PRN PRN PRN Reason: Diarrhea/Loose Stools Loratadine (Claritin) 10 mg PO DAILYPRN PRN PRN Reason: Sinus Symptoms Ondansetron HCl (Zofran Odt) 4 mg SL Q6H PRN PRN Reason: Nausea/Vomiting Ondansetron HCl (Zofran) 4 mg IVP Q6H PRN PRN Reason: Nausea/Vomiting Pantoprazole Sodium (Protonix) 40 mg IVP Q12HR [facility] Last Admin: 06/15/19 09:05 Dose: 40 mg Senna/Docusate Sodium (Senokot S) 2 tab PO BID PRN PRN Reason: Constipation Sodium Chloride ([place] Nasal [place] 0.65%) 0 ml EA NARE QIDPRN PRN PRN Reason: Nasal Congestion Sucralfate (Carafate) 1 gm PO ACHS [facility] Last Admin: 06/15/19 16:04 Dose: 1 gm Throat Lozenges (Cepastat Lozenges) 1 viridiana PO Q2H PRN PRN Reason: Sore Throat Zolpidem Tartrate (Ambien) 5 mg PO HSPRN PRN PRN Reason: Insomnia
[2019-06-16] MEDS: Sucralfate 1 GM/10 ML UDCUP PO SCH ×2 (07:24→10:33)
[2019-06-16] MEDS: HYDROcodone/Acetaminophen 5/325 mg Tablet PO PRN (07:24)
[2019-06-16] MEDS: Pantoprazole 40 MG VIAL IVP SCH (07:28)
[2019-06-16 08:55] LABS: #Basophils 0.1 thou/uL (0.0-0.2); #Eosinphils 0.4 thou/uL (0.0-0.7); #Monocytes 0.4 thou/uL (0.11-0.59); %Basophils 1.4 % (0.0-1.0); %Eosinophils 8.2 % (0.0-10.0); %Lymphocytes 20.1 % (21.0-51.0); %Monocytes 8.9 % (0.0-10.0); %Neutrophils 61.5 % (42.0-75.0); Hemoglobin 10.1 g/dL (12.0-16.0); Mean Corpuscular Hemoglobin 28.7 pg (27.0-31.0); Mean Corpuscular Volume 89.9 fL (78.0-98.0); Mean Platelet Volume 6.5 fL (7.4-10.4); Platelet Count 416 thou/uL (130-400); Red Blood Cell (RBC) Count 3.51 mill/uL (4.20-5.40); White Blood Cell (WBC) Count 4.9 thou/uL (4.8-10.8)
[2019-06-16 09:12] LABS: Anion Gap 14 mmol/L (10-20); BUN (Urea Nitrogen) 7 mg/dL (9.8-20.1); Calc. Creatinine Clearance 90 mL/min (70-130); Calcium 9.6 mg/dL (7.8-10.44); Carbon Dioxide 30 mmol/L (22-29); Chloride 101 mmol/L (98-107); Estimated GFR-MDRD Greater than 90; Glucose 94 mg/dL (70-105); Potassium 3.6 mmol/L (3.5-5.1); Sodium 141 mmol/L (136-145)
[2019-06-16 11:44] VITALS: BP 105/70; TEMP 98
--- NOTE | 2019-06-16 15:42 | DIS ---
DATE OF ADMISSION: 06/11/2019 DATE OF DISCHARGE: 06/16/2019 DISCHARGE DISPOSITION: Home. PRIMARY DISCHARGE DIAGNOSES: Acute blood loss anemia due to gastric ulcer in the antrum, upper gastrointestinal bleed due to ulcer in the stomach, and incidental finding of left ovarian dermoid cyst. PROCEDURES DONE DURING HOSPITALIZATION: The patient has had upper endoscopy done on 06/11/2019, which showed a very large cratered ulcer extending throughout the posterior wall of the antrum and extending through the pylorus to the first portion of the duodenum. There was a large protruding soft vessel in the center of the ulcer. There was no recent bleeding from this vessel. The vessel was injected around it with 4 mL of epinephrine. There was also a small 1 cm ulcer on the lateral wall of the duodenal bulb, which showed no signs of stigmata of recent bleeding. Open ring in the distal esophagus just above the 2 cm hiatal hernia. Ulcerated edges on antrum were biopsied. Repeat endoscopy done on 06/15/2019 showed mild ring in the distal esophagus, which was left alone. Large several centimeter ulcer in the antrum to the first portion of the duodenum has a friable fibrotic base, but no visible vessel or obvious stigmata of high risk for bleed. Histopathology of the antrum and duodenal ulcer shows reactive gastropathy consistent with adjacent ulcer/erosion. No H pylori organisms were seen. H and H 10 and 31, platelet count is 416, and MCV is 89. Ferritin is 35, BUN 7, creatinine 0.6. H and H on admission were 6.8 and 22. DISCHARGE MEDICATIONS: 1. Protonix 40 mg p.o. twice daily for a total of 45 days. 2. Sucralfate 1 g p.o. before meals and at bedtime for 4 weeks. ALLERGIES: ALLERGIC TO PENICILLIN. INPATIENT CONSULT: Dr. Pedro Peterson for Gastroenterology. DISCHARGE PLAN: The patient to follow up with primary care physician in 1 week and she also needs to follow up with her ignition specialist in [place] in 2 weeks for likely repeat upper endoscopy in 4 weeks. BRIEF COURSE DURING HOSPITALIZATION: The patient initially got admitted on the with complaints of epigastric abdominal pain and severe symptomatic anemia. She has had upper endoscopy done, which showed large antral ulcer extending throughout the posterior wall of the antrum and through the pylorus to the first portion of the duodenum. She was given a total of 2 units of packed cell transfusion. Her H and H have remained stable. Second-look upper endoscopy was done as the patient was unable to eat or drink without pain. She did not have any further bleeding from her large antral ulcer. She is on oral Protonix at the time of discharge. The patient was advised to continue Protonix and sucralfate as advised. She needs to have a repeat endoscopy in 4 to 6 weeks. Her histopathology has not revealed any H pylori organism or malignancy. She is otherwise tolerating oral solid diet and ambulating well. The patient is visiting her daughter and she is originally from [place] and is planning to go back shortly. She was counseled to follow up with her GI specialist in 2 weeks. Please note, I have seen and examined the patient on the day of discharge. Job ID: [id number]
== END 2019-06-16 12:01 | disposition home or self-care (01) | DRG 378 ==
LOC: ERS 03:00 → SURG A 03:17 → IMCU/EMU 22:45 → T4-B 06-12 17:33
PROVIDERS: ADMIT Family Medicine; ATTEND Family Medicine
PROC: 0W3P8ZZ Control Bleeding in Gastrointestinal Tract, Via Natural or Artificial Opening Endoscopic (ICD-10-PCS; principal; 2019-06-11)
PROC: 0DB98ZX Excision of Duodenum, Via Natural or Artificial Opening Endoscopic, Diagnostic (ICD-10-PCS; 2019-06-11)
PROC: 0DB68ZX Excision of Stomach, Via Natural or Artificial Opening Endoscopic, Diagnostic (ICD-10-PCS; 2019-06-11)
PROC: 0DJ08ZZ Inspection of Upper Intestinal Tract, Via Natural or Artificial Opening Endoscopic (ICD-10-PCS; 2019-06-15)
DX: K25.4 Chronic or unspecified gastric ulcer with hemorrhage (principal); D62 Acute posthemorrhagic anemia; D27.1 Benign neoplasm of left ovary; R10.13 Epigastric pain; K26.4 Chronic or unspecified duodenal ulcer with hemorrhage; K22.2 Esophageal obstruction; K44.9 Diaphragmatic hernia without obstruction or gangrene; Z88.0 Allergy status to penicillin
CPT/HCPCS: 36415; 36416; 36430; 80048; 81001; 82728; 85025; 86850; 86900; 86901; 87086; 88305; 88342; 96374; C9113; J0131; J0171; J2405; J2704; J2916; J3490